=== PATIENT | male | born 1965 | race Two or more races ===

== ENCOUNTER 2019-09-13 19:30 | Emergency (ER) | payer OTHER ==
[~2019-09-13] VITALS: Ht 175.3 cm; Wt 99.8 kg
[2019-09-13] MEDS ORDERED: CHILDREN'S ASPI81 MG (20:24)
[2019-09-13] MEDS ORDERED: CRESTOR40 MG (20:24)
[2019-09-13] MEDS ORDERED: ANTARA30 MG (20:24)
[2019-09-13] MEDS ORDERED: SOLIQUA 100 UNIT3 ML (20:24)
[2019-09-13] MEDS ORDERED: COZAAR100 MG (20:24)
[2019-09-13] MEDS ORDERED: MURO-12815 M1 (20:25)
[2019-09-13] MEDS ORDERED: VITAMIN D400 UNI2 (20:25)
== END 2019-09-13 21:56 | disposition home or self-care (01) ==
LOC: ER 19:30
DX: J11.1 Influenza due to unidentified influenza virus with other respiratory manifestations (principal); R50.9 Fever, unspecified

== ENCOUNTER 2020-12-21 06:05 | Emergency (ER) | payer OTHER ==
[~2020-12-21] VITALS: Ht 175.3 cm; Wt 108.9 kg
[~2020-12-21 06:05] MED LIST: ANTARA30 MG; CHILDREN'S ASPI81 MG; COZAAR100 MG; CRESTOR40 MG; MURO-12815 M1; SOLIQUA 100 UNIT3 ML; VITAMIN D400 UNI2
[2020-12-21] MEDS ORDERED: LEVSIN/SL0.125 MG PO (13:10)
[2020-12-21] MEDS ORDERED: ANUSOL-HC25 MG RECTAL (13:10)
[2020-12-21] MEDS ORDERED: PEPCID AC20 MG PO (13:10)
[2020-12-21] MEDS ORDERED: INTESTINEX680 M1 PO (13:10)
== END 2020-12-21 13:22 | disposition home or self-care (01) ==
LOC: ER 06:05
DX: R10.32 Left lower quadrant pain (principal)

== ENCOUNTER 2021-09-11 06:38 | Emergency (ER) | payer OTHER ==
[~2021-09-11] VITALS: Ht 175.3 cm; Wt 106.6 kg
[~2021-09-11 06:38] MED LIST changes: +ANUSOL-HC25 MG RECTAL; +INTESTINEX680 M1 PO; +LEVSIN/SL0.125 MG PO; +PEPCID AC20 MG PO
[2021-09-11] MEDS ORDERED: PYRIDIUM200 MG (06:50)
[2021-09-11] MEDS ORDERED: LEVOFLOXACIN750 MG (06:51)
[2021-09-11] MEDS ORDERED: CRESTOR40 MG (06:52)
[2021-09-11] MEDS ORDERED: CYMBALTA20 MG (06:52)
[2021-09-11] MEDS ORDERED: ZETIA10 MG (06:53)
[2021-09-11] MEDS ORDERED: ECOTRIN81 MG (06:53)
[2021-09-11] MEDS ORDERED: HUMALOG100 UNIT/1 (06:53)
[2021-09-11] MEDS ORDERED: OZEMPIC0.25 MG/0. (06:54)
[2021-09-11] MEDS ORDERED: TOUJEO MAX300 UNIT/1 (06:54)
[2021-09-11] MEDS ORDERED: TIMOLOL MALEATE5 M4 (06:55)
== END 2021-09-11 13:08 | disposition home or self-care (01) ==
LOC: ER 06:38
DX: N39.0 Urinary tract infection, site not specified (principal); K02.9 Dental caries, unspecified

== ENCOUNTER 2021-09-23 21:43 | Emergency (ER) | payer OTHER ==
[~2021-09-23] VITALS: Ht 175.3 cm; Wt 106.6 kg
[~2021-09-23 21:43] MED LIST changes: +CYMBALTA20 MG; +ECOTRIN81 MG; +HUMALOG100 UNIT/1; +LEVOFLOXACIN750 MG; +OZEMPIC0.25 MG/0.; +PYRIDIUM200 MG; +TIMOLOL MALEATE5 M4; +TOUJEO MAX300 UNIT/1; +ZETIA10 MG
[2021-09-23] MEDS ORDERED: [UNRECOGNIZED DRUG - OTHER] MC (21:51)
[2021-09-23] MEDS ORDERED: JANUMET 50-5001 EACH PO (21:52)
== END 2021-09-23 22:52 | disposition home or self-care (01) ==
LOC: ER 21:43
DX: T38.3X1A Poisoning by insulin and oral hypoglycemic [antidiabetic] drugs, accidental (unintentional), initial encounter (principal); Y92.9 Unspecified place or not applicable; I10 Essential (primary) hypertension

== ENCOUNTER → 2022-07-13 | Emergency (ER) | payer OTHER ==
[~2022-07-13] VITALS: Ht 175.3 cm; Wt 106.6 kg
[~2022-07-13] MED LIST changes: +JANUMET 50-5001 EACH PO; +[UNRECOGNIZED DRUG - OTHER] MC
== END | disposition home or self-care (01) ==
LOC: ER 17:35
DX: R30.0 Dysuria (principal); Z20.822 Contact with and (suspected) exposure to COVID-19

== ENCOUNTER 2022-07-15 11:20 | Emergency (ER) | payer OTHER ==
[~2022-07-15] VITALS: Ht 175.3 cm; Wt 106.6 kg
[2022-07-15] MEDS ORDERED: CIPRO500 MG PO (13:19)
== END 2022-07-15 13:51 | disposition home or self-care (01) ==
LOC: ER 11:20
DX: N39.0 Urinary tract infection, site not specified (principal); B96.89 Other specified bacterial agents as the cause of diseases classified elsewhere; E11.9 Type 2 diabetes mellitus without complications; Z79.4 Long term (current) use of insulin; I10 Essential (primary) hypertension

== ENCOUNTER 2023-01-08 01:00 | Emergency (ER) | payer OTHER ==
[~2023-01-08] VITALS: Ht 175.3 cm; Wt 108.9 kg
[~2023-01-08 01:00] MED LIST changes: +CIPRO500 MG PO
== END 2023-01-08 04:13 | disposition home or self-care (01) ==
LOC: ER 01:00
DX: J06.9 Acute upper respiratory infection, unspecified (principal); E11.9 Type 2 diabetes mellitus without complications; Z79.84 Long term (current) use of oral hypoglycemic drugs